=== PATIENT | male | born 1955 | race American Indian/Alaskan Native ===

== ENCOUNTER 2019-01-13 10:53 | Day surgery (SDC) | payer OTHER ==
[~2019-01-13] VITALS: Ht 190.5 cm; Wt 117.7 kg
[~2019-01-13 10:53] MED LIST: ALBU2.5V5 NEB; ALBU90OI INH; ALBU90OI61 INH; ALFU10; ANAPRIL; ASPI325 PO; ASPI81CH; ATOR10 PO; ATOR40TA PO; ATORVASTATIN CA20 MG PO; BLOOD THINNER; CELE200 PO; CILO50 PO; CLOP75 PO; CYCL10 PO; DOXA4 PO; ENAL2.5 PO; Flovent Disku100 MCG INH; GUAI600T33 PO; IBUP400 PO; IPRAOI INH; KRILL OIL 1,001 EAC1 PO; MED FOR DEPRESSION; METPRE4DP PO; MONT10T PO; Men's Multi-Vi1 EACH PO; NEOPOLHYD OP; NITR.4SL SL; OXYACE5T PO; OXYC5 PO; Omeprazole20 M1 PO; RANI150 PO; SERT50 PO; SILSUL1TC TOP; STIOLTO RESPIMAT4 GM INH; TRAM50 PO; [UNRECOGNIZED DRUG - REMARK]
--- NOTE | 2019-01-13 12:23 | NUR ---
01/13/19 1223 Delmis Corey SIMETHECONE USED DURING PROCEDURE.
--- NOTE | 2019-01-13 13:38 | NUR ---
01/13/19 1338 Delmis Corey S PT. WITH EXPIRATORY WHEEZES ON LEFT SIDE, ANTERIORLY & POSTERIORLY. PT. ALSO C/O "5-6" CHRONIC BACK PAIN.
== END 2019-01-13 13:55 | disposition home or self-care (01) ==
LOC: ORSCSDS 10:53
PROVIDERS: Internal Medicine Gastroenterology
PROC: 0DBM8ZX Excision of Descending Colon, Via Natural or Artificial Opening Endoscopic, Diagnostic (ICD-10-PCS; principal; 2019-01-13 12:15)
PROC: 0DBL8ZX Excision of Transverse Colon, Via Natural or Artificial Opening Endoscopic, Diagnostic (ICD-10-PCS; principal; 2019-01-13 12:15)
PROC: 0DBN8ZX Excision of Sigmoid Colon, Via Natural or Artificial Opening Endoscopic, Diagnostic (ICD-10-PCS; principal; 2019-01-13 12:15)
PROC: 0DBH8ZX Excision of Cecum, Via Natural or Artificial Opening Endoscopic, Diagnostic (ICD-10-PCS; principal; 2019-01-13 12:15)
DX: Z86.010 Personal history of colon polyps (principal); D12.0 Benign neoplasm of cecum; D12.3 Benign neoplasm of transverse colon; D12.4 Benign neoplasm of descending colon; K63.5 Polyp of colon; K57.30 Diverticulosis of large intestine without perforation or abscess without bleeding; K64.8 Other hemorrhoids; I10 Essential (primary) hypertension; I25.10 Atherosclerotic heart disease of native coronary artery without angina pectoris; J44.9 Chronic obstructive pulmonary disease, unspecified; F17.210 Nicotine dependence, cigarettes, uncomplicated; G47.33 Obstructive sleep apnea (adult) (pediatric); Z79.899 Other long term (current) drug therapy; E66.9 Obesity, unspecified; Z68.32 Body mass index [BMI] 32.0-32.9, adult
CPT/HCPCS: J2704; J7120

== ENCOUNTER → 2020-05-16 | Outpatient (CLI) | payer OTHER | LOC: LAB 18:11 → LAB SHORT 18:11 | DX: L02.411 Cutaneous abscess of right axilla (principal) | CPT/HCPCS: 87070; 87075; 87205 ==

== ENCOUNTER 2021-10-10 09:37 | Emergency (ER) | payer OTHER ==
[~2021-10-10] VITALS: Ht 193 cm; Wt 115.2 kg
[2021-10-10 10:07] LABS: BASOPHILS ABSOLUTE AUTO 0.12 K/mm3 (0.00-0.23); BASOPHILS PERCENT AUTO 1 % (0-2); EOSINOPHILS ABSOLUTE AUTO 0.35 K/mm3 (0.00-0.68); EOSINOPHILS PERCENT AUTO 4 % (0-6); Hematocrit 46.3 % (37.0-53.0); Hemoglobin 15.3 g/dL (13.5-17.5); IMMATURE GRAN ABSOLUTE AUTO 0.12 K/mm3 (0.00-0.10); IMMATURE GRAN PERCENT AUTO 1 % (0-1); LYMPHOCYTES ABSOLUTE AUTO 2.23 K/mm3 (0.84-5.20); LYMPHOCYTES PERCENT AUTO 24 % (21-46); MONOCYTES ABSOLUTE AUTO 0.72 K/mm3 (0.16-1.47); MONOCYTES PERCENT AUTO 8 % (4-13); Mean Corpuscular HGB 29.7 pg (26.0-34.0); Mean Corpuscular Volume 90 fL (80-100); Mean Platelet Volume 11.1 fL (9.1-12.4); NEUTROPHILS ABSOLUTE AUTO 5.66 K/mm3 (1.96-9.15); NEUTROPHILS PERCENT AUTO 62 % (41-73); Platelet Count 270 K/mm3 (150-400); RDW Coefficient Variation 12.8 % (11.7-14.2); RDW Standard Deviation 42.4 fL (35.1-46.3); Red Blood Cell Count 5.15 M/mm3 (4.30-5.90)
[2021-10-10 10:29] LABS: Alanine Aminotransfer (ALT/SGP 86 U/L (12-78); Albumin, Blood 3.4 g/dL (3.4-5.0); Albumin/Globulin Ratio 0.9 (0.8-1.8); Alk Phos 114 U/L (50-136); Anion Gap 5 mmol/L (6-16); Aspartate Aminotrans (AST/SGOT 38 U/L (12-37); Bilirubin, Total 0.4 mg/dL (0.1-1.0); Blood Urea Nitrogen 14 mg/dL (8-24); Bun/Creatinine Ratio 11.8 (12.0-20.0); CO2, Blood 24 mmol/L (21-32); Calcium, Blood 8.7 mg/dL (8.5-10.1); Chloride, Blood 108 mmol/L (98-108); Creatinine, Blood 1.19 mg/dL (0.60-1.20); Globulin, Blood 3.8 g/dL (2.2-4.0); Glomerular Filtration Rate >60 (60-); Glucose, Blood 177 mg/dL (70-99); Potassium, Blood 4.3 mmol/L (3.5-5.5); Sodium, Blood 137 mmol/L (136-145); Total Protein, Blood 7.2 g/dL (6.4-8.2); Troponin I <0.015 ng/mL (0.000-0.040)
[2021-10-10 10:52] LABS: International Normalized Ratio 0.94; Prothrombin Time Results 9.9 Sec (9.7-11.5)
== END 2021-10-10 13:24 | disposition left against medical advice (07) ==
LOC: ER 09:37
PROVIDERS: Emergency Medicine
DX: G45.9 Transient cerebral ischemic attack, unspecified (principal); F17.200 Nicotine dependence, unspecified, uncomplicated; Z79.899 Other long term (current) drug therapy
CPT/HCPCS: 36415; 70450; 70496; 70498; 71045; 80053; 84484; 85025; 85610; 85730; 93005; 93010; 99285-25; Q9967

== ENCOUNTER 2021-11-18 06:21 | Day surgery (SDC) | payer OTHER ==
[~2021-11-18] VITALS: Ht 190.5 cm; Wt 116.0 kg
--- NOTE | 2021-11-18 09:15 | NUR ---
PT ARRIVED BACK TO PROCEDURE ROOM IN RECLINER. RIGHT RADIAL TR BAND SITE SOFT WITH NO HEMATOMA, NO PULSATILE BLEEDING AND WRIST BOARD IN PLACE. PT DENIES CHEST PAIN. PT DRINKING COFFEE. CALL LIGHT IN REACH.
[2021-11-18] MEDS ORDERED: METO50ER PO (09:47)
[2021-11-18] MEDS ORDERED: Isosorbide Mono30 MG PO (09:48)
--- NOTE | 2021-11-18 11:03 | NUR ---
12CC OF AIR REMOVED OVER 10 MIN OUT OF NOW DEFLATED RIGHT TR BAND; NO HEMATOMA,NO PULSATILE BLEEDING AND SOFT. DISCHARGE INSTRUCTIONS REVIEWED AND ALL QUESTIONS ANSWERED. CALL LIGHT IN REACH.
--- NOTE | 2021-11-18 11:11 | NUR ---
NO CHANGES TO R RADIAL DEFLATED TR BAND.
--- NOTE | 2021-11-18 11:40 | NUR ---
NO CHANGES TO DEFLATED RIGHT TR BAND SITE.
--- NOTE | 2021-11-18 12:05 | NUR ---
DR CHAND IN ROOM TO SEE PT.
--- NOTE | 2021-11-18 12:07 | NUR ---
DEFLATED RIGHT TR BAND REMOVED AND POLYMEM PLACED OVER RIGHT RADIAL SITE WITH WRIST BAORD IN PLACE; NO HEMATOMA, NO PULSATILE BLEEDING AND SOFT. 20 IV DISCONTINUED FROM LEFT AC WITH INTACT CANNULA. ZIO PATCH PLACED BY ROB.
--- NOTE | 2021-11-18 12:12 | NUR ---
PT ESCORTED OUT VIA WHEELCHAIR ESCORT.
== END 2021-11-18 12:15 | disposition home or self-care (01) ==
LOC: MHTC 06:21
DX: I25.118 Atherosclerotic heart disease of native coronary artery with other forms of angina pectoris (principal); R94.39 Abnormal result of other cardiovascular function study; I65.23 Occlusion and stenosis of bilateral carotid arteries; I10 Essential (primary) hypertension; J44.9 Chronic obstructive pulmonary disease, unspecified; G47.33 Obstructive sleep apnea (adult) (pediatric); K21.9 Gastro-esophageal reflux disease without esophagitis; E78.5 Hyperlipidemia, unspecified; F17.210 Nicotine dependence, cigarettes, uncomplicated; Z86.73 Personal history of transient ischemic attack (TIA), and cerebral infarction without residual deficits; Z88.8 Allergy status to other drugs, medicaments and biological substances; Z88.5 Allergy status to narcotic agent
CPT/HCPCS: 76937; 93246; 93454; 93571; 93572; 99152; 99153; C1769; C1887; C1894; J0153; J1644; J2250; J3010; J7030; J7050; Q9967

== ENCOUNTER 2023-11-17 12:15 | Day surgery (SDC) | payer OTHER ==
[~2023-11-17] VITALS: Ht 190.5 cm; Wt 114.8 kg
[~2023-11-17 12:15] MED LIST changes: +Balanced Salt Epinephrine Irrigation Solution 500 mL IR SCH; +Chantix1 MG PO; +ISOSORBIDE MONO60 MG PO; +Isosorbide Mono30 MG PO; +LANTUS SOL100 UNIT/1 SC; +Lidocaine HCl/Pf 1% 5 ML VIAL ONE; +Lidocaine HCl/Pf 1% 5 ML VIAL XX SCH; +METO50ER PO; +Moxifloxacin HCL 0.5 MG/0.1 ML 0.4MLSYR RIGHTEYE SCH; +NS 500 ML IV ONE; +PHENYLEPHRINE\\TROPICAMIDE\\TETRACAINE OPHTHALMIC DILATING SOLN RIGHTEYE PRN; +Povidone-Iodine 450 DROP/30 ML Solution ONE; +Povidone-Iodine 450 DROP/30 ML Solution RIGHTEYE SCH; +REPATHA SU140 MG/1 M SC; +SPIRIVA RESPIMAT4 G3 INH; +SYMBICORT 160-4.6 GM INH; +Triamcinolone A15 G3; +Triamcinolone Inj Susp 40 MG / ML 1ML Vial INJ SCH; +Triamcinolone Inj Susp 40 MG / ML 1ML Vial ONE
[2023-11-17] MEDS ORDERED: NS 500 ML IV ONE (12:39)
[2023-11-17] MEDS ORDERED: Midazolam HCl 1MG / ML 2ML Vial ONE (13:41)
[2023-11-17] MEDS ORDERED: FentaNYL Citrate 50 MCG/ML 2 ML Injection ONE (13:41)
[2023-11-17] MEDS ORDERED: Tetracaine HCl 0.5% Opth Soln 15 ml RIGHTEYE ONE (13:42)
[2023-11-17 14:06] VITALS: BP 158/78
== END 2023-11-17 14:16 | disposition home or self-care (01) ==
LOC: ORSCSDS 12:15
PROVIDERS: Ophthalmology
PROC: 08RJ3JZ Replacement of Right Lens with Synthetic Substitute, Percutaneous Approach (ICD-10-PCS; principal; 2023-11-17 13:30)
DX: E11.36 Type 2 diabetes mellitus with diabetic cataract (principal); H25.11 Age-related nuclear cataract, right eye; K21.9 Gastro-esophageal reflux disease without esophagitis; I10 Essential (primary) hypertension; J44.9 Chronic obstructive pulmonary disease, unspecified; G47.33 Obstructive sleep apnea (adult) (pediatric); Z86.73 Personal history of transient ischemic attack (TIA), and cerebral infarction without residual deficits; F17.210 Nicotine dependence, cigarettes, uncomplicated; Z79.4 Long term (current) use of insulin; Z79.899 Other long term (current) drug therapy
CPT/HCPCS: 82947; J2001; J2250; J3010; J3301; J7040; V2632

== ENCOUNTER 2025-05-15 12:38 | Inpatient (IN) | payer OTHER ==
[~2025-05-15] VITALS: Ht 193 cm; Wt 102.5 kg
[~2025-05-15 12:38] MED LIST changes: -Balanced Salt Epinephrine Irrigation Solution 500 mL IR SCH; -Lidocaine HCl/Pf 1% 5 ML VIAL ONE; -Lidocaine HCl/Pf 1% 5 ML VIAL XX SCH; -Moxifloxacin HCL 0.5 MG/0.1 ML 0.4MLSYR RIGHTEYE SCH; -NS 500 ML IV ONE; -PHENYLEPHRINE\\TROPICAMIDE\\TETRACAINE OPHTHALMIC DILATING SOLN RIGHTEYE PRN; -Povidone-Iodine 450 DROP/30 ML Solution ONE; -Povidone-Iodine 450 DROP/30 ML Solution RIGHTEYE SCH; -Triamcinolone Inj Susp 40 MG / ML 1ML Vial INJ SCH; -Triamcinolone Inj Susp 40 MG / ML 1ML Vial ONE
[2025-05-15 13:22] LABS: BASOPHILS ABSOLUTE AUTO 0.07 K/mm3 (0.00-0.23); BASOPHILS PERCENT AUTO 1 % (0-2); EOSINOPHILS ABSOLUTE AUTO 0.07 K/mm3 (0.00-0.68); EOSINOPHILS PERCENT AUTO 1 % (0-6); Hematocrit 40.4 % (37.0-53.0); Hemoglobin 13.6 g/dL (13.5-17.5); IMMATURE GRAN ABSOLUTE AUTO 0.11 K/mm3 (0.00-0.10); IMMATURE GRAN PERCENT AUTO 1 % (0-1); LYMPHOCYTES ABSOLUTE AUTO 0.93 K/mm3 (0.84-5.20); LYMPHOCYTES PERCENT AUTO 6 % (21-46); MONOCYTES ABSOLUTE AUTO 1.01 K/mm3 (0.16-1.47); MONOCYTES PERCENT AUTO 7 % (4-13); Mean Corpuscular HGB Conc 33.7 g/dL (31.5-36.5); Mean Corpuscular Volume 88 fL (80-100); NEUTROPHILS ABSOLUTE AUTO 12.80 K/mm3 (1.96-9.15); NEUTROPHILS PERCENT AUTO 85 % (41-73); NRBC ABSOLUTE 0.00 K/mm3 (0.00-0.02); NRBC Auto 0.0 /100 WBC (0.0-0.2); Platelet Count 298 K/mm3 (150-400); RDW Coefficient Variation 12.9 % (11.7-14.2); RDW Standard Deviation 41.3 fL (35.1-46.3)
[2025-05-15 13:57] LABS: Thyroid Stimulating Hormone 1.280 uIU/mL (0.360-4.800)
[2025-05-15 14:02] LABS: Source, Urine Clean Catch
[2025-05-15 14:05] LABS: Alanine Aminotransfer (ALT/SGP 37 U/L (12-78); Albumin, Blood 3.0 g/dL (3.4-5.0); Albumin/Globulin Ratio 0.7 (0.8-1.8); Anion Gap 9 mmol/L (3-11); Aspartate Aminotrans (AST/SGOT 48 U/L (12-37); Bilirubin, Total 0.7 mg/dL (0.1-1.0); Blood Urea Nitrogen 22 mg/dL (8-24); CO2, Blood 24 mmol/L (21-32); Calcium, Blood 9.1 mg/dL (8.5-10.1); Chloride, Blood 103 mmol/L (98-108); Creatinine, Blood 1.73 mg/dL (0.60-1.20); Globulin, Blood 4.4 g/dL (2.2-4.0); Glucose, Blood 148 mg/dL (70-99); Potassium, Blood 5.8 mmol/L (3.5-5.5); Sodium, Blood 130 mmol/L (136-145); Total Protein, Blood 7.4 g/dL (6.4-8.2)
[2025-05-15 14:05] LABS: Bilirubin, Urine Neg (Neg); Color, Urine Amber (P-Yellow); Glucose Qualitative, Urine Neg (Neg); Ketones, Urine Neg (Neg); Leukocyte Esterase, Urine 3+ (Neg); Protein, Urine 3+ (Neg); Specific Gravity, Urine 1.020 (1.003-1.022); Urobilinogen, Urine NORM (Normal)
[2025-05-15 14:06] LABS: Ethanol (Alcohol), Blood, Med <3 mg/dL
[2025-05-15 14:17] LABS: Red Blood Cells, Urine 25-50 /hpf (0-2); White Blood Cells, Urine TNTC /hpf (0-5)
[2025-05-15] MEDS ORDERED: CefTRIAXone Sodium 1,000 MG in NS 100 ML IV ONE (14:25)
[2025-05-15] MEDS ORDERED: NS 1,000 ML IV SCH ×3 (14:25→18:15)
[2025-05-15 14:26] LABS: U Amphetamine Screen Not Detected; U Barbituate Screen Not Detected; U Benzodiazapine Screen Not Detected; U Buprenorphine Screen Not Detected; U Cannabinoids Screen Not Detected; U Cocaine Screen Not Detected; U Methadone Screen Not Detected; U Methamphetamine Screen Not Detected; U Opiates Screen Not Detected; U Oxycodone Screen Not Detected; U Phencyclidine Screen Not Detected
[2025-05-15 15:02] LABS: Influenza A, PCR NEGATIVE (NEGATIVE); Influenza B, PCR NEGATIVE (NEGATIVE); Resp Syncytial Virus, PCR NEGATIVE (NEGATIVE); SARS-Cov-2 (COVID-19) PCR, MMC NEGATIVE (NEGATIVE)
[2025-05-15] MEDS ORDERED: Ondansetron HCl 2 MG / ML 2ML Vial IV PRN (15:15)
[2025-05-15] MEDS ORDERED: Ipratropium/Albuterol SulF 2.5-0.5MG/3 ML Amp INH SCH (15:55)
[2025-05-15] MEDS ORDERED: Albuterol 2.5 MG/3 ML VIAL INH PRN (15:55)
[2025-05-15] MEDS ORDERED: Formoterol/Mometasone MDI 5/200 mcg 13 GM INH SCH (16:05)
[2025-05-15 17:13] VITALS: BP 118/57
--- NOTE | 2025-05-15 18:48 | NUR ---
PT ADMITTED FROM ED AT 1700 D/T WEAKNESS AND AMS, FOUND TO HAVE UTI. 1L SALINE BOLUS GIVEN IN ED, 1 BAG STARTED AT 100 ML/HR. ROCEPHEN GIVEN IN ED, PT FRIENDS REPORT PT IMPROVING NOW A&O X4, VSS, RA. CALL LIGHT IN REACH, PT ORIENTED TO ROOM.
[2025-05-15 19:06] VITALS: BP 111/76
[2025-05-15] MEDS ORDERED: Lactobacil 2-S.Thermo-Bifido 1 1 Cap PO SCH (21:00)
[2025-05-16 03:43] VITALS: BP 108/66
--- NOTE | 2025-05-16 04:20 | NUR ---
SHIFT SUMMARY: PT AOX4, CALLS APPROPRIATELY ABLE TO MAKE NEEDS KNOWN. DIFFICULTY SLEEPING, PT WAS HAVING INCREASINGLY WET SOUNDING LUNGS AND A LOT OF SPUTUM COUGHING UP. FLUIDS DC'D, SEEMS TO BE HELPING ALTHOUGH HE STILL HAS A COUGH WHICH IS PREVENTING HIM FROM BEING ABLE TO SLEEP. CONSTANT, SCANT URINE WHICH IS VERY DARK AND CLOUDY. PT STATES TO BE FEELING BETTER THAN WHEN HE CAME IN BUT STILL NOT FEELING WELL AND UNSURE ABOUT BEING ABLE TO WALK SAFELY. TOLERATING MEDICATIONS WELL. PT IN BED RESTING, BED IN LOWEST POSITION, CALL LIGHT IN REACH. CONTINUING CARE.
[2025-05-16 07:17] LABS: BASOPHILS ABSOLUTE AUTO 0.04 K/mm3 (0.00-0.23); BASOPHILS PERCENT AUTO 0 % (0-2); EOSINOPHILS ABSOLUTE AUTO 0.02 K/mm3 (0.00-0.68); EOSINOPHILS PERCENT AUTO 0 % (0-6); Hematocrit 36.3 % (37.0-53.0); Hemoglobin 12.2 g/dL (13.5-17.5); IMMATURE GRAN ABSOLUTE AUTO 0.27 K/mm3 (0.00-0.10); IMMATURE GRAN PERCENT AUTO 2 % (0-1); LYMPHOCYTES ABSOLUTE AUTO 1.22 K/mm3 (0.84-5.20); LYMPHOCYTES PERCENT AUTO 7 % (21-46); MONOCYTES ABSOLUTE AUTO 1.28 K/mm3 (0.16-1.47); MONOCYTES PERCENT AUTO 7 % (4-13); Mean Corpuscular HGB Conc 33.6 g/dL (31.5-36.5); Mean Corpuscular Volume 89 fL (80-100); NEUTROPHILS ABSOLUTE AUTO 14.93 K/mm3 (1.96-9.15); NEUTROPHILS PERCENT AUTO 84 % (41-73); NRBC ABSOLUTE 0.00 K/mm3 (0.00-0.02); NRBC Auto 0.0 /100 WBC (0.0-0.2); Platelet Count 251 K/mm3 (150-400); RDW Coefficient Variation 12.8 % (11.7-14.2); RDW Standard Deviation 41.4 fL (35.1-46.3)
[2025-05-16 07:36] VITALS: BP 131/85
[2025-05-16 07:39] LABS: Alanine Aminotransfer (ALT/SGP 28.0 U/L (12-78); Albumin, Blood 2.6 g/dL (3.4-5.0); Albumin/Globulin Ratio 0.7 (0.8-1.8); Anion Gap 7.0 mmol/L (3-11); Aspartate Aminotrans (AST/SGOT 24.0 U/L (12-37); Bilirubin, Total 0.8 mg/dL (0.1-1.0); Blood Urea Nitrogen 27.0 mg/dL (8-24); CO2, Blood 22.0 mmol/L (21-32); Calcium, Blood 8.5 mg/dL (8.5-10.1); Chloride, Blood 105.0 mmol/L (98-108); Creatinine, Blood 2.37 mg/dL (0.60-1.20); Globulin, Blood 3.7 g/dL (2.2-4.0); Glucose, Blood 135.0 mg/dL (70-99); Potassium, Blood 4.7 mmol/L (3.5-5.5); Sodium, Blood 129.0 mmol/L (136-145); Total Protein, Blood 6.3 g/dL (6.4-8.2)
[2025-05-16] MEDS ORDERED: Isosorbide Mononitrate 60 MG TABCR PO SCH (09:00)
[2025-05-16] MEDS ORDERED: Enoxaparin 40 MG/0.4 ML SYR SC SCH (09:00)
[2025-05-16] MEDS ORDERED: CefTRIAXone Sodium 1,000 MG in NS 100 ML IV SCH (12:00)
[2025-05-16 16:00] VITALS: BP 117/56
--- NOTE | 2025-05-16 18:43 | NUR ---
SUMMARY- PT A/O X3-4, MOMENTS OF FORGETFULNESS. PT STATES HE FEELS WEAK AND FATIGUED. RN/ANODE REBUILDER TRIED TO GET HIM UP TO THE CHAIR FOR LUNCH, PT BECAME DIAPHORETIC AND WEAK, LAID BACK DOWN. PT HAS NO APPETITE. DIETARY SAW PT TODAY AND STARTED HIM ON SUPPLEMENT, NEPRO WITH MEALS. DRANK ALL SUPP AT DINNER TIME. PT ENCOURAGED TO DRINK FLUIDS THIS SHIFT BUT ONLY TOOK IN APPROX 300ML H2O PLUS NEPRO AT DINNER (250ML). PT IS INCONT OF URINE, PLACED MALE PUREWICK AT 1700. WILL REPORT TO NOC RN
[2025-05-16 19:52] VITALS: BP 147/66
[2025-05-17 04:39] VITALS: BP 135/64
--- NOTE | 2025-05-17 05:18 | NUR ---
SHIFT SUMMARY PT ALERT ORIENTED WITH INTERMITTENT CONFUSION ABLE TO VERBALIZE NEEDS. HES BEEN REFUSING TO EAT AND HAS TO BE ENCOURAGED TO DRINK LIQUIDS. REMAINS ON NEPPRO DID DRINK ABOUT 3/4 OF IT AT DINNER. REMAINS ON ROCEPHIN ORDERED FOR UTI. HE DID HAVE A SLIGHT TEMP AT BEGINNING OF SHIFT OF 99.2. ALL OTHER VSS. MALE PUREWICK INTACT DRAINING VERY DARK KATHY URINE. HES ABLE TO REPOSITION SELF IN BED. NO C/O PAIN THIS SHIFT. CONTINUES WITH A NONPRODUCTIVE COUGH AND CONGESTION. HE TOOK HIS MEDS CRUSHED IN APPLESAUCE AND TAKES HIM A LITTLE BIT TO SWALLOW. RESTING IN BED AT THIS TIME WITH BED ALARM ON AND CALL LIGHT IN REACH
[2025-05-17 07:25] VITALS: BP 143/97
[2025-05-17] MEDS ORDERED: NS 1,000 ML IV SCH (07:35)
[2025-05-17] MEDS ORDERED: CefTRIAXone Sodium 1,000 MG in NS 100 ML IV SCH (09:00)
[2025-05-17 12:24] LABS: Anion Gap 10.0 mmol/L (3-11); Blood Urea Nitrogen 29.0 mg/dL (8-24); CO2, Blood 22.0 mmol/L (21-32); Calcium, Blood 8.2 mg/dL (8.5-10.1); Chloride, Blood 104.0 mmol/L (98-108); Creatinine, Blood 1.97 mg/dL (0.60-1.20); Glucose, Blood 125.0 mg/dL (70-99); Potassium, Blood 4.0 mmol/L (3.5-5.5); Sodium, Blood 132.0 mmol/L (136-145)
[2025-05-17] MEDS ORDERED: Tiotropium Bromide 2.5 MCG/ACT MIST INHAL (10 ACT/4 GM) INH SCH (14:05)
[2025-05-17 14:29] VITALS: BP 110/51
[2025-05-17 16:35] VITALS: BP 135/60
--- NOTE | 2025-05-17 17:23 | NUR ---
DR FARR NOTIFIED OF NEW DEVELOPED BLOOD IN URINE. STARTED PT ON MAKE PUREWICK YESTERDAY AND HAD BEEN VOIDING FREQ AMOUNTS OF KATHY MED CONCENTRATION IN SMALL FREQ AMOUNTS. APPROX 15OO, RN NOTED BLOOD IN URINE SCHWAB/CRAN IN COLOR, URINE NOT OPAQUE. ORDER TO STOP PLAVIX AND LOVENOX- PT DENIES BURNING WITH URINATION WHICH HE HAD YESTERDAY. WILL CONT TO BENJIE
--- NOTE | 2025-05-17 17:27 | NUR ---
SUMMARY- PT A/O X3-4, MILDLY FORGETFUL AT TIMES. PT STATES HE FEELS FATIGUED EASY, HAS REFUSED TO GET UP TO A CHAIR. WHEN TRIED YESTERDAY, BECAME DIAPHORETIC AND DIZZY. TODAY PT WAS ABLE TO SIT AT THE EDGE OF THE BED FOR APPROX 5 MINUTES, HOLDING HIS OWN BALANCE WITHOUT DIFFICULTY. STATED ONLY MILD DIZZINESS. PT HAS REFUSED SOLID FOOD BUT IS DRINKING ABOUT HALF NEPRO WITH EACH MEAL. PT IN NOT SELF MOTIVATED TO DRINK FLUIDS, STAFF CONT REMINDING PT TO DRINK. URINE WAS KATHY YESTERDAY, APPROX 1500 STARTED NOTICING BLOOD, CRAN/SCHWAB COLOR. SEE NOTE. STARTED ON IVF TODAY CONTINUING TO SUPPROT FLUID BALANCE IN REGUARDS TO KIDNEY FUNCTION. RENAL U.S. COMPLETED THIS AM. PT HAD HEADACHE THIS AM RELEIVED WITH. LUNGS CLEAR WITH FINE CRACKLES IN R BASE. WILL CONT TO BENJIE ESPECIALLY WHILE PT RECEIVING FLUIDS. WILL REPORT TO NOC TIA TYLENOL.
[2025-05-17 19:59] VITALS: BP 123/46
[2025-05-18 04:03] VITALS: BP 156/68
--- NOTE | 2025-05-18 05:24 | NUR ---
SHIFT SUMMARY PT ALERT ORIENTED X 4 ABLE TO VERBALIZE NEEDS DOES SEEM TO BE MUCH MORE ALERT. REMAINS WITH A MALE PUREWICK INTACT DRAINING DARK BURGANDY URINE. HES HAD THIS SINCE THIS MORNING. HIS PLAVIX AND LOVENOX ARE NOW DCED. C/O PAIN BEHIND HIS RT EAR. MEDICATED WITH TYLENOL BUT HE STILL HAS SOME PAIN TO AREA. BUT ITS BETTER THEN IT WAS. REMAINS ON ROCEPHIN ORDERED FOR UTI/SEPSIS. A RENAL ULTRASOUND WAS DONE YESTERDAY AFTER THE BLEEDING STARTED AND IT SHOWED RENAL CORTICOL CYSTS. VSS ON RA SATTING AT 96%. HES ABLE TO TURN AND REPOSITION SELF. CONTINUES WITH A NONPRODUCTIVE COUGH AND CONGESTION BUT ITS GETTING BETTER. HES STILL REFUSING TO EAT BUT DOES DRINK SMALL AMOUNTS OF NEPRO. LABS TO BE DONE THIS AM. HES RESTING IN BED AT THIS TIME WITH CALL LIGHT IN REACH
[2025-05-18 06:27] LABS: Hematocrit 35.9 % (37.0-53.0); Hemoglobin 12.1 g/dL (13.5-17.5); Mean Corpuscular HGB Conc 33.7 g/dL (31.5-36.5); Mean Corpuscular Volume 88 fL (80-100); NRBC ABSOLUTE 0.00 K/mm3 (0.00-0.02); NRBC Auto 0.0 /100 WBC (0.0-0.2); Platelet Count 198 K/mm3 (150-400); RDW Coefficient Variation 12.8 % (11.7-14.2); RDW Standard Deviation 41.6 fL (35.1-46.3)
[2025-05-18 06:44] LABS: Albumin, Blood 2.2 g/dL (3.4-5.0); Anion Gap 9 mmol/L (3-11); Blood Urea Nitrogen 25 mg/dL (8-24); CO2, Blood 24 mmol/L (21-32); Calcium, Blood 8.5 mg/dL (8.5-10.1); Chloride, Blood 106 mmol/L (98-108); Creatinine, Blood 1.71 mg/dL (0.60-1.20); Glucose, Blood 116 mg/dL (70-99); Magnesium, Blood 2.2 mg/dL (1.6-2.4); Phosphorus, Blood 3.4 mg/dL (2.5-4.9); Potassium, Blood 4.3 mmol/L (3.5-5.5); Sodium, Blood 135 mmol/L (136-145)
[2025-05-18 07:43] VITALS: BP 173/70
--- NOTE | 2025-05-18 10:45 | NUR ---
Pt. is awake in bed and welcomed mu visit. Pt. is pleasant, but quikly displayed evidence of shooting pain in his neck/head area. Facilitated a short life review and listened with emapthy and a calming presence. Considered matters of the Pts. anne marie and the community. Pt. displayed evidence of turat as rapport is established. Prayed with the Pt. Pt. verbalized gratitude for the spiritual care visit.
[2025-05-18 16:27] VITALS: BP 149/78
[2025-05-18] MEDS ORDERED: FentaNYL Citrate 50 MCG/ML 2 ML Injection IV ONE (17:05)
--- NOTE | 2025-05-18 18:40 | NUR ---
End of shift summary: Patient is alert and oriented x3; pleasant and cooperative with care. Patient with continued complaint of "headache" with shooting/stabbing behind right ear. New medications ordered and administered per EMAR. Patient with lightened urine output noted; was red/brown this am and now dark diana. Patient with no appetite and drinking water only today. All medications administered per EMAR. Patient utilizing call light appropriately; call light within reach, bed in lowest position. Will continue to monitor until next shift nurse arrives and report is given.
[2025-05-18 21:48] VITALS: BP 127/56
[2025-05-19 04:15] VITALS: BP 153/73
--- NOTE | 2025-05-19 04:31 | NUR ---
SHIFT SUMMARY PATIENT A/O X4 THROUGHOUT SHIFT, SLIGHTLY FORGETFUL. PLEASANT AND COOPERATIVE WITH CARE. MALE PUREWICK IN PLACE, DRAINING KATHY URINE. ATTEMPTED TO HAVE BOWEL MOVEMENT ON BEDPAN BUT WAS UNSUCCESSFUL. PAIN REPORTED BEHIND HIS RIGHT EAR AT THE BEGINING OF SHIFT, MEDICATED FOR PAIN PER EMAR, NO FURTHER PAIN REPORTED AT THIS TIME. VERY LITTLE INTAKE. VITAL SIGNS REMAINED STABLE. NO ACUTE CHANGES THROUGHOUT SHIFT. WILL CONTINUE TO MONITOR AND REPORT TO ONCOMING RN.
[2025-05-19 05:43] LABS: Hematocrit 38.0 % (37.0-53.0); Hemoglobin 12.5 g/dL (13.5-17.5); Mean Corpuscular HGB Conc 32.9 g/dL (31.5-36.5); Mean Corpuscular Volume 90 fL (80-100); NRBC ABSOLUTE 0.00 K/mm3 (0.00-0.02); NRBC Auto 0.0 /100 WBC (0.0-0.2); Platelet Count 192 K/mm3 (150-400); RDW Coefficient Variation 12.9 % (11.7-14.2); RDW Standard Deviation 42.8 fL (35.1-46.3)
[2025-05-19 06:12] LABS: Anion Gap 9.0 mmol/L (3-11); Blood Urea Nitrogen 24.0 mg/dL (8-24); CO2, Blood 24.0 mmol/L (21-32); Calcium, Blood 8.6 mg/dL (8.5-10.1); Chloride, Blood 103.0 mmol/L (98-108); Creatinine, Blood 1.72 mg/dL (0.60-1.20); Glucose, Blood 123.0 mg/dL (70-99); Potassium, Blood 3.7 mmol/L (3.5-5.5); Sodium, Blood 132.0 mmol/L (136-145)
[2025-05-19 07:59] VITALS: BP 131/50
[2025-05-19 16:03] VITALS: BP 119/74
--- NOTE | 2025-05-19 17:54 | NUR ---
End of shift summary: Patient is alert and oriented x3; pleasant and cooperative with care. Patient wanting to get up and "move around" today and patient up by side of bed standing for approximately 2 minutes x2. Patient with some unsteadiness noted and voiced. Patient with decreased pain today and was medicated per EMAR with good results voiced and noted. No acute changes this shift. Patient utilizing call light appropriately; call light within reach, bed in lowest postion. Will continue to montior until next shift ingrid arrives and report is given.
[2025-05-19 19:31] VITALS: BP 123/72
--- NOTE | 2025-05-20 05:13 | NUR ---
SHIFT SUMMARY- PATIENT A/O X3, FORGETFUL AT TIMES. PLEASANT AND COOPERATIVE WITH CARE. PAIN REPORTED IN THE RIGHT SIDE OF HIS HEAD, BEHIND HIS EAR, MEDICATED PER EMAR WITH GOOD RELIEF REPORTED. MALE PUREWICK IN PLACE, DRAINING KATHY URINE. NO ACUTE CHANGES, WILL CONTINUE TO MONITOR AND REPORT TO DAY SHIFT RN.
[2025-05-20 05:31] VITALS: BP 138/76
[2025-05-20 07:38] VITALS: BP 157/74
[2025-05-20] MEDS ORDERED: ACET500 PO (12:14)
[2025-05-20] MEDS ORDERED: AMOCLA500 PO (12:15)
[2025-05-20] MEDS ORDERED: GABA100 PO (12:15)
== END 2025-05-20 18:40 | disposition home or self-care (01) | DRG 871 ==
LOC: ER 12:38 → MEDS 12:39
PROVIDERS: Internal Medicine; ADMIT Internal Medicine
DX: A41.51 Sepsis due to Escherichia coli [E. coli] (principal); G93.41 Metabolic encephalopathy; N17.9 Acute kidney failure, unspecified; E87.1 Hypo-osmolality and hyponatremia; J44.1 Chronic obstructive pulmonary disease with (acute) exacerbation; N30.01 Acute cystitis with hematuria; R65.20 Severe sepsis without septic shock; N18.30 Chronic kidney disease, stage 3 unspecified; F17.210 Nicotine dependence, cigarettes, uncomplicated; I25.10 Atherosclerotic heart disease of native coronary artery without angina pectoris; M54.9 Dorsalgia, unspecified; G89.29 Other chronic pain; K21.9 Gastro-esophageal reflux disease without esophagitis; I73.9 Peripheral vascular disease, unspecified; S40.021A Contusion of right upper arm, initial encounter; R51.9 Headache, unspecified; Z88.8 Allergy status to other drugs, medicaments and biological substances; Z79.899 Other long term (current) drug therapy; Z79.51 Long term (current) use of inhaled steroids; Z95.1 Presence of aortocoronary bypass graft; Z79.2 Long term (current) use of antibiotics; Z79.4 Long term (current) use of insulin; Z85.038 Personal history of other malignant neoplasm of large intestine; Z90.49 Acquired absence of other specified parts of digestive tract; Z95.820 Peripheral vascular angioplasty status with implants and grafts; Z98.890 Other specified postprocedural states; Z95.5 Presence of coronary angioplasty implant and graft; W01.198A Fall on same level from slipping, tripping and stumbling with subsequent striking against other object, initial encounter; Y92.009 Unspecified place in unspecified non-institutional (private) residence as the place of occurrence of the external cause
CPT/HCPCS: 36415; 70450; 71046; 76770; 80048; 80053; 80069; 80320; 81001; 82140; 83735; 84439; 84443; 85025; 85027; 87077; 87086; 87186; 87637; 93005; 93010; 94640; 94664; 94760; 96365-59; 96372; 96376; 99285-25; A9270; G0378; J0696; J1650; J2470; J3010; J7030

== ENCOUNTER 2025-07-18 13:32 | Inpatient (IN) | payer OTHER ==
[~2025-07-18] VITALS: Ht 193 cm; Wt 104.5 kg
[~2025-07-18 13:32] MED LIST changes: +ACET500 PO; +AMOCLA500 PO; +GABA100 PO; -Triamcinolone A15 G3; +Triamcinolone A15 G3 TOP
[2025-07-18] MEDS ORDERED: Ketorolac Tromethamine 30mg Vial IV ONE (14:20)
[2025-07-18] MEDS ORDERED: HYDROmorphone HCl/Pf 1MG SYR IV ONE ×2 (14:20→17:10)
[2025-07-18] MEDS ORDERED: NS 1,000 ML IV SCH ×2 (14:20→21:00)
[2025-07-18] MEDS ORDERED: Ondansetron HCl 2 MG / ML 2ML Vial IV ONE (14:20)
[2025-07-18 14:50] LABS: BASOPHILS ABSOLUTE AUTO 0.06 K/mm3 (0.00-0.23); BASOPHILS PERCENT AUTO 1 % (0-2); EOSINOPHILS ABSOLUTE AUTO 0.30 K/mm3 (0.00-0.68); EOSINOPHILS PERCENT AUTO 3 % (0-6); Hematocrit 39.1 % (37.0-53.0); Hemoglobin 12.9 g/dL (13.5-17.5); IMMATURE GRAN ABSOLUTE AUTO 0.09 K/mm3 (0.00-0.10); IMMATURE GRAN PERCENT AUTO 1 % (0-1); LYMPHOCYTES ABSOLUTE AUTO 1.57 K/mm3 (0.84-5.20); LYMPHOCYTES PERCENT AUTO 16 % (21-46); MONOCYTES ABSOLUTE AUTO 0.94 K/mm3 (0.16-1.47); MONOCYTES PERCENT AUTO 10 % (4-13); Mean Corpuscular HGB Conc 33.0 g/dL (31.5-36.5); Mean Corpuscular Volume 87 fL (80-100); NEUTROPHILS ABSOLUTE AUTO 6.61 K/mm3 (1.96-9.15); NEUTROPHILS PERCENT AUTO 69 % (41-73); NRBC ABSOLUTE 0.00 K/mm3 (0.00-0.02); NRBC Auto 0.0 /100 WBC (0.0-0.2); Platelet Count 254 K/mm3 (150-400); RDW Coefficient Variation 14.2 % (11.7-14.2); RDW Standard Deviation 45.1 fL (35.1-46.3)
[2025-07-18 15:15] LABS: Alanine Aminotransfer (ALT/SGP 27.0 U/L (12-78); Albumin, Blood 3.4 g/dL (3.4-5.0); Albumin/Globulin Ratio 0.9 (0.8-1.8); Anion Gap 6.0 mmol/L (3-11); Aspartate Aminotrans (AST/SGOT 23.0 U/L (12-37); Bilirubin, Total 0.5 mg/dL (0.1-1.0); Blood Urea Nitrogen 24.0 mg/dL (8-24); CO2, Blood 27.0 mmol/L (21-32); Calcium, Blood 9.2 mg/dL (8.5-10.1); Chloride, Blood 107.0 mmol/L (98-108); Creatinine, Blood 1.59 mg/dL (0.60-1.20); Globulin, Blood 3.6 g/dL (2.2-4.0); Glucose, Blood 137.0 mg/dL (70-99); Potassium, Blood 4.2 mmol/L (3.5-5.5); Sodium, Blood 136.0 mmol/L (136-145); Total Protein, Blood 7.0 g/dL (6.4-8.2)
[2025-07-18 16:17] LABS: Source, Urine Clean Catch
[2025-07-18 16:20] LABS: Bilirubin, Urine Neg (Neg); Color, Urine Brown (P-Yellow); Glucose Qualitative, Urine Neg (Neg); Ketones, Urine Neg (Neg); Leukocyte Esterase, Urine 2+ (Neg); Protein, Urine 3+ (Neg); Specific Gravity, Urine 1.025 (1.003-1.022); Urobilinogen, Urine NORM (Normal)
[2025-07-18 16:30] LABS: Red Blood Cells, Urine TNTC /hpf (0-2)
[2025-07-18] MEDS ORDERED: CefTRIAXone Sodium 1,000 MG in NS 50 ML IV ONE (17:10)
[2025-07-18] MEDS ORDERED: Albuterol 2.5 MG/3 ML VIAL INH PRN (20:55)
[2025-07-18] MEDS ORDERED: OxyCODONE 5 mg/Acetamin 325 mg TABLET PO PRN (20:55)
[2025-07-18] MEDS ORDERED: Insulin Human Lispro 100 Units/ML 3ML Syringe SC SCH (21:00)
[2025-07-18] MEDS ORDERED: Insulin Glargine 100 Unit/ML 3 ML SYR SC SCH (21:00)
[2025-07-18] MEDS ORDERED: Tiotropium Bromide 2.5 MCG/ACT MIST INHAL (10 ACT/4 GM) INH SCH (21:55)
[2025-07-18 22:05] VITALS: BP 188/79
[2025-07-18] MEDS ORDERED: ASPI325 PO (22:45)
[2025-07-18 23:51] VITALS: BP 180/77
[2025-07-19] VITALS (7 sets, daily range): BP systolic 154–206; BP diastolic 67–86
[2025-07-19 04:57] LABS: BASOPHILS ABSOLUTE AUTO 0.05 K/mm3 (0.00-0.23); BASOPHILS PERCENT AUTO 1 % (0-2); EOSINOPHILS ABSOLUTE AUTO 0.32 K/mm3 (0.00-0.68); EOSINOPHILS PERCENT AUTO 4 % (0-6); Hematocrit 34.0 % (37.0-53.0); Hemoglobin 11.3 g/dL (13.5-17.5); IMMATURE GRAN ABSOLUTE AUTO 0.06 K/mm3 (0.00-0.10); IMMATURE GRAN PERCENT AUTO 1 % (0-1); LYMPHOCYTES ABSOLUTE AUTO 1.96 K/mm3 (0.84-5.20); LYMPHOCYTES PERCENT AUTO 26 % (21-46); MONOCYTES ABSOLUTE AUTO 0.86 K/mm3 (0.16-1.47); MONOCYTES PERCENT AUTO 12 % (4-13); Mean Corpuscular HGB Conc 33.2 g/dL (31.5-36.5); Mean Corpuscular Volume 87 fL (80-100); NEUTROPHILS ABSOLUTE AUTO 4.23 K/mm3 (1.96-9.15); NEUTROPHILS PERCENT AUTO 57 % (41-73); NRBC ABSOLUTE 0.00 K/mm3 (0.00-0.02); NRBC Auto 0.0 /100 WBC (0.0-0.2); Platelet Count 207 K/mm3 (150-400); RDW Coefficient Variation 14.1 % (11.7-14.2); RDW Standard Deviation 45.0 fL (35.1-46.3)
[2025-07-19 05:21] LABS: Anion Gap 9.0 mmol/L (3-11); Blood Urea Nitrogen 24.0 mg/dL (8-24); CO2, Blood 24.0 mmol/L (21-32); Calcium, Blood 8.6 mg/dL (8.5-10.1); Chloride, Blood 109.0 mmol/L (98-108); Creatinine, Blood 1.69 mg/dL (0.60-1.20); Glucose, Blood 126.0 mg/dL (70-99); Magnesium, Blood 2.2 mg/dL (1.6-2.4); Potassium, Blood 3.9 mmol/L (3.5-5.5); Sodium, Blood 138.0 mmol/L (136-145)
--- NOTE | 2025-07-19 05:49 | NUR ---
SHIFT SUMMARY PT A&Ox4 AND PLEASANT. NO N/V DURING THE NIGHT. PT TOLERATING FOOD AND DRINK. MEDICATED FOR L FLANK PAIN PER EMAR. NS INFUSING AT 100ml/hr. PT CONTINUES TO HAVE RED URINE AND SOME PAIN WITH URINATION. SBP HAS BEEN ELEVATED AND PRN HYDRALAZINE GIVEN FOR SBP >180 AROUND 0400. INSULIN GLARGINE GIVEN AT HS PER EMAR. ON RA. PT ABLE TO SLEEP MOST OF THE NIGHT. BED IN LOWEST POSITION AND CALL LIGHT IN REACH.
[2025-07-19] MEDS ORDERED: CefTRIAXone Sodium 2,000 MG in NS 100 ML IV SCH (09:00)
--- NOTE | 2025-07-19 16:38 | NUR ---
Spiritual Care Visit A short visit was intitiated. Pt. is known to this chpalain from previous visits. As updates were being facilitated the Pt. needed to urgently urinate, AND this remote sensing specialist got called to an EOL Pt. Pt. verbalized gratitude for the spiritual care visit and welcomed this remote sensing specialist to return.
[2025-07-19] MEDS ORDERED: Albuterol HFA200 ACT/6.7 GM INH INH PRN (17:30)
[2025-07-19] MEDS ORDERED: Formoterol/Mometasone MDI 5/200 mcg 13 GM INH SCH (17:30)
--- NOTE | 2025-07-19 18:30 | NUR ---
PATIENT A/OX4, UP INDEPENDENTLY TO RESTROOM. B/P ELEVATED, IMDUR ADDED TO MEDICATIONS TODAY. VSS, ON RA. L FLANK/BACK PAIN TREATED WITH PERCOCET X2 TODAY. URINE NO LONGER BLOODY. CEFTRIAXONE DAILY TO TREAT PYELONEPHRITIS. PATIENT PLEASANT AND COOPERATIVE, ABLE TO MAKE NEEDS KNOWN. NO NEW CONCERNS THIS SHIFT.
[2025-07-20 03:51] VITALS: BP 193/75
[2025-07-20 04:54] LABS: Hematocrit 33.9 % (37.0-53.0); Hemoglobin 11.2 g/dL (13.5-17.5); Mean Corpuscular HGB Conc 33.0 g/dL (31.5-36.5); Mean Corpuscular Volume 87 fL (80-100); NRBC ABSOLUTE 0.00 K/mm3 (0.00-0.02); NRBC Auto 0.0 /100 WBC (0.0-0.2); Platelet Count 216 K/mm3 (150-400); RDW Coefficient Variation 14.0 % (11.7-14.2); RDW Standard Deviation 44.4 fL (35.1-46.3)
--- NOTE | 2025-07-20 05:04 | NUR ---
SHIFT SUMMARY PT A&Ox4 AND PLEASANT. PT CONTINUES TO HAVE RED URINE BUT PAIN WITH URINATION IMPROVING. MEDICATED PER EMAR FOR BACK PAIN THAT PT REPORTS IS FROM HOSPITAL BED. SBP ELEVATED DURING THE NIGHT AND PO HYDRALAZINE GIVEN TWICE PER EMAR. IND AT BEDSIDE WITH URINAL. NS INFUSING AT 100ml/hr. BED IN LOWEST POSITION AND CALL LIGHT IN REACH.
[2025-07-20 05:17] LABS: Anion Gap 9.0 mmol/L (3-11); Blood Urea Nitrogen 21.0 mg/dL (8-24); CO2, Blood 25.0 mmol/L (21-32); Calcium, Blood 8.9 mg/dL (8.5-10.1); Chloride, Blood 107.0 mmol/L (98-108); Creatinine, Blood 1.86 mg/dL (0.60-1.20); Glucose, Blood 118.0 mg/dL (70-99); Potassium, Blood 3.9 mmol/L (3.5-5.5); Sodium, Blood 137.0 mmol/L (136-145)
[2025-07-20 05:25] VITALS: BP 162/61
[2025-07-20 07:38] VITALS: BP 180/53
[2025-07-20] MEDS ORDERED: Isosorbide Mononitrate 60 MG TABCR PO SCH (09:00)
[2025-07-20] MEDS ORDERED: TRELEGY ELLIPT1 EACH INH (11:02)
--- NOTE | 2025-07-20 16:07 | NUR ---
PT A/OX4. PLEASANT AND COOPERATIVE WITH CARE. INDEPENDENT IN ROOM. PTS PAIN HAS BEEN TREATED PER EMAR. URINE COLOR THIS MORNING WAS PINK, T/O SHIFT URINE HAS NOTICABLELY LESS BLOOD AND NOW LOOKS TO BE YELLOW. US OF BLADDER HAS BEEN ORDERED. CONT IV ABX. NO ACUTE NEEDS AT THIS TIME.
[2025-07-20 16:42] VITALS: BP 177/78
[2025-07-20 19:11] VITALS: BP 170/67
[2025-07-21 04:29] LABS: Hematocrit 33.2 % (37.0-53.0); Hemoglobin 11.1 g/dL (13.5-17.5); Mean Corpuscular HGB Conc 33.4 g/dL (31.5-36.5); Mean Corpuscular Volume 87 fL (80-100); NRBC ABSOLUTE 0.00 K/mm3 (0.00-0.02); NRBC Auto 0.0 /100 WBC (0.0-0.2); Platelet Count 210 K/mm3 (150-400); RDW Coefficient Variation 14.0 % (11.7-14.2); RDW Standard Deviation 43.4 fL (35.1-46.3)
[2025-07-21 04:34] VITALS: BP 157/58
--- NOTE | 2025-07-21 04:34 | NUR ---
SHIFT SUMMARY: PATIENT SLEEPING SOUNDLY FOR MAJORITY OF THIS SHIFT. PATIENT MEDICATED FOR PAIN X1 DURING THIS SHIFT, SEE EMAR FOR DETAILS. NO NEW OR ACUTE CHANGES DURING THIS SHIFT. PATIENT CONTINUES TO VOID TEA/YELLOW COLORED URINE. PLAN TO CONTINUE ABX TREATMENT AT THIS TIME AND TO D/C ON WEDNESDAY. WILL CONTINUE TO MONITOR.
[2025-07-21 05:59] LABS: Anion Gap 9.0 mmol/L (3-11); Blood Urea Nitrogen 20.0 mg/dL (8-24); CO2, Blood 25.0 mmol/L (21-32); Calcium, Blood 9.1 mg/dL (8.5-10.1); Chloride, Blood 106.0 mmol/L (98-108); Creatinine, Blood 1.56 mg/dL (0.60-1.20); Glucose, Blood 109.0 mg/dL (70-99); Potassium, Blood 3.8 mmol/L (3.5-5.5); Sodium, Blood 136.0 mmol/L (136-145)
[2025-07-21 07:19] VITALS: BP 187/70
[2025-07-21] MEDS ORDERED: PANT20 PO (10:45)
[2025-07-21] MEDS ORDERED: CEFU500T30 PO (10:45)
[2025-07-21] MEDS ORDERED: MIRALAX17 GM PO (10:46)
[2025-07-21] MEDS ORDERED: VISBIOME 112.51 EACH PO (10:48)
--- NOTE | 2025-07-21 13:20 | NUR ---
PATIENT DISCHARGED HOME WITH HIS SON AT 13:15. PUSHED OUT TO THE PATIENT ENTRANCE VIA WHEELCHAIR
--- NOTE | 2025-07-21 15:23 | NUR ---
assumed care of pt. pt is awaiting discharge, waiting for Dr polanco. dr an hodge see pt, discharge orders given and implemented.
== END 2025-07-21 13:15 | disposition home or self-care (01) | DRG 690 ==
LOC: ER 13:32 → ERHOLD 18:00 → MEDS 18:00 → ENPENDDIS 07-21 10:11 → MEDS 07-21 13:15
PROVIDERS: Emergency Medicine; Internal Medicine; ADMIT Internal Medicine
DX: N10 Acute pyelonephritis (principal); C64.2 Malignant neoplasm of left kidney, except renal pelvis; J44.9 Chronic obstructive pulmonary disease, unspecified; I25.10 Atherosclerotic heart disease of native coronary artery without angina pectoris; K21.9 Gastro-esophageal reflux disease without esophagitis; E11.51 Type 2 diabetes mellitus with diabetic peripheral angiopathy without gangrene; K59.00 Constipation, unspecified; N18.30 Chronic kidney disease, stage 3 unspecified; I12.9 Hypertensive chronic kidney disease with stage 1 through stage 4 chronic kidney disease, or unspecified chronic kidney disease; F17.210 Nicotine dependence, cigarettes, uncomplicated; C67.9 Malignant neoplasm of bladder, unspecified; E11.22 Type 2 diabetes mellitus with diabetic chronic kidney disease; R31.9 Hematuria, unspecified; Z95.5 Presence of coronary angioplasty implant and graft; Z79.4 Long term (current) use of insulin; Z88.8 Allergy status to other drugs, medicaments and biological substances; Z88.1 Allergy status to other antibiotic agents; Z85.038 Personal history of other malignant neoplasm of large intestine
CPT/HCPCS: 36415; 74177; 80048; 80053; 81001; 82947; 83605; 83690; 83735; 85025; 85027; 87040; 87086; 94640; 94664; 94760; 96361; 96365-59; 96375; 99285-25; A9270; J0696; J1171; J1815; J1885; J2405; J7030; Q9967

== ENCOUNTER → 2025-09-26 | Outpatient (CLI) | payer OTHER ==
[~2025-09-26] MED LIST changes: +CEFU500T30 PO; +MIRALAX17 GM PO; +PANT20 PO; +TRELEGY ELLIPT1 EACH INH; +VISBIOME 112.51 EACH PO
[2025-09-26 15:04] LABS: Source, Urine Clean Catch
[2025-09-26 17:39] LABS: Bilirubin, Urine Neg (Neg); Color, Urine Red (P-Yellow); Glucose Qualitative, Urine Neg (Neg); Ketones, Urine 1+ (Neg); Leukocyte Esterase, Urine Neg (Neg); Protein, Urine 4+ (Neg); Specific Gravity, Urine 1.020 (1.003-1.022); Urobilinogen, Urine NORM (Normal)
[2025-09-26 17:46] LABS: Red Blood Cells, Urine TNTC /hpf (0-2)
== END ==
LOC: LAB 15:01 → LAB SHORT 15:01 → EDSTATUS 09-26 14:40 → LAB FUT 09-26 14:40
PROVIDERS: Physician Assistant
DX: N39.0 Urinary tract infection, site not specified (principal)
CPT/HCPCS: 81001; 87086